=== PATIENT | male | born 1990 | race African-American/Black ===

== ENCOUNTER 2019-01-04 15:55 | Emergency (ER) | payer MEDICAID ==
[~2019-01-04] VITALS: Ht 172.7 cm; Wt 78.0 kg
[2019-01-04 19:30] VITALS: BP 147/74
== END 2019-01-04 16:38 | disposition home or self-care (01) ==
LOC: ER 15:55
DX: A59.09 Other urogenital trichomoniasis (principal); F12.10 Cannabis abuse, uncomplicated; F17.200 Nicotine dependence, unspecified, uncomplicated
CPT/HCPCS: 99283